=== PATIENT | female | born 1970 | race Two or more races ===

== ENCOUNTER 2016-10-15 13:52 | Emergency (ER) | payer MEDICAID ==
[~2016-10-15] VITALS: Ht 162.6 cm; Wt 74.8 kg
[2016-10-15 14:20] VITALS: BP 112/54
== END 2016-10-15 16:49 | disposition home or self-care (01) ==
LOC: ER 13:52
DX: S46.911A Strain of unspecified muscle, fascia and tendon at shoulder and upper arm level, right arm, initial encounter (principal); S20.219A Contusion of unspecified front wall of thorax, initial encounter; V49.9XXA Car occupant (driver) (passenger) injured in unspecified traffic accident, initial encounter; Y93.89 Activity, other specified; Y99.8 Other external cause status; Y92.488 Other paved roadways as the place of occurrence of the external cause
CPT/HCPCS: 71020; 73010